=== PATIENT | male | born 1975 ===

== ENCOUNTER 2020-03-19 06:40 | Day surgery (SDC) | payer OTHER ==
[2020-03-19] MEDS ORDERED: PERCOCET 5-3251 EACH PO (12:55)
[2020-03-19] MEDS ORDERED: NEURONTIN600 M1 PO (12:55)
== END 2020-03-19 15:30 | disposition home or self-care (01) ==
LOC: CIR.AMB 06:40
PROVIDERS: ATTEND Surgery
DX: K80.10 Calculus of gallbladder with chronic cholecystitis without obstruction (principal); Z20.828 Contact with and (suspected) exposure to other viral communicable diseases